=== PATIENT | female | born 1945 | race Caucasian/White ===

== ENCOUNTER → 2024-06-28 13:05 | Outpatient (REF) | payer OTHER, SELFPAY | LOC: RAD 13:05 | PROVIDERS: ATTENDING PHYSICIAN Internal Medicine Critical Care Medicine | DX: Z87.891 Personal history of nicotine dependence (principal) | CPT/HCPCS: 71271 ==

== ENCOUNTER → 2025-02-10 11:58 | Outpatient (REF) | payer OTHER, SELFPAY ==
[2025-02-10 13:04] LABS: Hematocrit 44.8 % (37.0-47.0); Hemoglobin 14.7 g/dL (12.0-16.0); Mean Corp Hgb Conc. 32.8 g/dL (33.0-37.0); Mean Corpuscular Volume 91.6 fL (81.0-99.0); Nucleated Red Blood Cells % 0 %; Platelet Count 214 10^3/uL (130-400); Red Cell Dist. Width 12.3 % (11.5-14.5)
== END ==
LOC: RAD 11:58
PROVIDERS: ATTENDING PHYSICIAN Nurse Practitioner Family; FAMILY PHYSICIAN Family Medicine
DX: R06.02 Shortness of breath (principal)
CPT/HCPCS: 36415; 71046; 85025

== ENCOUNTER → 2025-05-28 14:38 | Outpatient (REF) | payer OTHER, SELFPAY | LOC: RCS 14:38 | PROVIDERS: ATTENDING PHYSICIAN Nurse Practitioner Family; PRIMARYCARE PHYSICIAN Family Medicine; REFERRING PHYSICIAN Internal Medicine Critical Care Medicine | DX: R06.02 Shortness of breath (principal) | CPT/HCPCS: 93306 ==